=== PATIENT | female | born 1985 | race Caucasian/White ===

== ENCOUNTER 2024-07-27 08:02 | Inpatient (IN) | payer BC ==
[2024-07-29 18:07] VITALS: BMI 47.4
[2024-07-29] MEDS ORDERED: Tranexamic Acid 1,000 MG/10 ML VIAL IVP PRN (18:27)
[2024-07-29] MEDS ORDERED: Ibuprofen 800 MG TAB PO PRN (18:27)
[2024-07-29] MEDS ORDERED: Lidocaine 1% (PF) 30 ML VIAL SC PRN (18:27)
[2024-07-29] MEDS ORDERED: Acetaminophen 500 MG TAB PO PRN (18:27)
[2024-07-29] MEDS ORDERED: Ondansetron PF 4 MG/2 ML Vial IVP PRN ×4 (18:27→22:41)
[2024-07-29] MEDS ORDERED: Misoprostol 200 MCG TAB PR PRN (18:27)
[2024-07-29] MEDS ORDERED: Promethazine HCl 25 MG/ML VIAL IM PRN ×3 (18:27→22:41)
[2024-07-29] MEDS ORDERED: Misoprostol 100 MCG TAB VAG SCH (18:30)
[2024-07-29] MEDS ORDERED: Oxytocin 30 units/NS 500 ML 500 ML IV SCH (18:30)
[2024-07-29] MEDS ORDERED: Labetalol HCl 100 MG/20 ML VIAL SLOW IVP PRN ×2 (18:31)
[2024-07-29] MEDS ORDERED: hydrALAZINE 20 MG/ML VIAL SLOW IVP PRN ×2 (18:31)
[2024-07-29] MEDS: hydrALAZINE 20 MG/ML VIAL SLOW IVP PRN (18:38)
[2024-07-29] MEDS: Magnesium Sulfate 20 gm/500 ml 20 GM/500 ML BAG ONE (18:41)
[2024-07-29 18:42] LABS: #Basophils 0.03 10x3/uL (0.0-0.2); #Eosinophils 0.08 10x3/uL (0.0-0.5); #Monocytes 0.68 10x3/uL (0.0-1.1); #Neutrophils 4.48 10x3/uL (1.5-8.4); %Basophils 0.4 % (0.0-2.0); %Eosinophils 1.1 % (0.0-6.0); %Monocytes 9.2 % (0.0-10.0); %Neutrophils 60.9 % (40.0-75.0); Hematocrit 36.4 % (34.9-44.5); Hemoglobin 12.6 g/dL (12.0-15.5); Mean Corpuscular HGB CONC 34.6 g/dL (32.0-36.0); Mean Corpuscular Hemoglobin 29.6 pg (27.0-33.0); Mean Corpuscular Volume 85.6 fL (81.6-98.3); Mean Platelet Volume 12.7 fL (7.4-10.4); Platelet Count 225 10x3/uL (150-450); Red Blood Cell (RBC) Count 4.25 10x6/uL (3.90-5.03); White Blood Cell (WBC) Count 7.36 10x3/uL (3.5-10.5)
[2024-07-29] MEDS ORDERED: Lorazepam 2 MG/ML VIAL SLOW IVP PRN (18:50)
[2024-07-29] MEDS ORDERED: Calcium Gluc 4.6 MEQ/10 ML (100 MG/ML) SLOW IVP PRN (18:50)
[2024-07-29 18:58] LABS: ALT (SGPT) 14 U/L (Less than 34); AST (SGOT) 22 U/L (11-34); Albumin 2.4 g/dL (3.1-4.5); Alkaline Phosphatase 158 U/L (40-110); Anion Gap 18 mmol/L (10-20); BUN (Urea Nitrogen) 11 mg/dL (7.0-18.7); Bilirubin, Total 0.3 mg/dL (0.3-1.2); Calc. Creatinine Clearance 238 mL/min (70-130); Calcium 8.8 mg/dL (7.8-10.44); Carbon Dioxide 18 mmol/L (22-29); Chloride 107 mmol/L (98-107); Estimated GFR 115; Globulin 3.7 g/dL (2.4-3.5); Glucose 163 mg/dL (70-105); Potassium 4.5 mmol/L (3.5-5.1); Protein, Total 6.1 g/dL (6.0-8.3); Sodium 138 mmol/L (136-145)
[2024-07-29 19:16] LABS: Syphilis Antibody Nonreactive (Nonreactive); Syphilis Antibody Index 0.09 S/CO (<1.00 Non-Reactive)
[2024-07-29 19:17] LABS: HBsAg Index 0.16 S/CO (0-0.99); Hep B Surf Ag - L&D Non-Reactive S/CO (NonReactive)
[2024-07-29] MEDS: Penicillin G Potassium 5 MILL.UNITS in Sodium Chloride 0.9% 100 ML IVPB SCH (19:58)
[2024-07-29 20:29] LABS: Creatinine, Urine 175.93 mg/dL (15.00-278.00)
[2024-07-29] MEDS: fentaNYL/Ropivacaine Epidural 100 ML ONE (20:59)
[2024-07-29] MEDS ORDERED: Moisturizing Cream (Eucerin) 113 GM JAR TOP PRN ×2 (21:30→22:41)
[2024-07-29] MEDS ORDERED: Naloxone HCl 0.4 mg/ml Vial IVP PRN ×4 (21:30→22:41)
[2024-07-29] MEDS ORDERED: diphenhydrAMINE 50 MG/ML VIAL IVP PRN ×2 (21:30→22:41)
[2024-07-29] MEDS ORDERED: Lactated Ringer's 500 ML IV PRN (21:30)
[2024-07-29] MEDS ORDERED: Communication Order-Pharmacy FS SCH ×2 (21:30→22:45)
[2024-07-29] MEDS ORDERED: fentaNYL 2 mcg/Ropivacaine 0.2% Epidural 100 ML CADD EPIDURAL SCH (21:30)
[2024-07-29] MEDS: ePHEDrine Sulfate 50 MG/10 ML VIAL SLOW IVP PRN ×2 (21:33→21:44)
[2024-07-29] MEDS: Lactated Ringer's 1,000 ML IV SCH (21:41)
[2024-07-29] MEDS ORDERED: Bicitra 30 ML UDCUP PO PRN (22:24)
[2024-07-29] MEDS ORDERED: Famotidine/PF 20 mg/2ml Vial SLOW IVP PRN (22:24)
[2024-07-29] MEDS ORDERED: Azithromycin 500 MG in Sodium Chloride 0.9% 250 ML 250 ML IVPB SCH (22:30)
[2024-07-29] MEDS ORDERED: Meperidine HCl/PF 25 MG (1 mL) VIAL SLOW IVP PRN (22:41)
[2024-07-29] MEDS ORDERED: fentaNYL 50 mcg/mL 1 mL Vial SLOW IVP PRN (22:41)
[2024-07-29] MEDS ORDERED: Naloxone HCl 0.4 mg/ml Vial IV PRN (22:41)
[2024-07-29] MEDS: CEFAZOLIN 2 GM in Sodium Chloride 0.9% 100 ML IVPB SCH (22:59)
[2024-07-30 00:06] LABS: Analyzer IN Cardio CS NICU; Critical Notified By: clumpkins rt; RapidComm Collect By nur.arp
[2024-07-30 00:11] LABS: Analyzer IN Cardio CS NICU; Critical Notified By: clumpkins rt; RapidComm Collect By nur.arp; pH (Cord, venous) 7.055 (7.250-7.350)
[2024-07-30] MEDS: hydrALAZINE 20 MG/ML VIAL ONE (03:18)
[2024-07-30] MEDS: Dexamethasone 10 MG/ML VIAL ONE (03:21)
[2024-07-30] MEDS: Ketorolac Tromethamine 30 MG (1 mL) VIAL ONE (03:21)
[2024-07-30] MEDS: Penicillin G 2.5 MILL.units 2.5 MILL.UNITS in Premix 1 BAG IVPB SCH (03:21)
[2024-07-30] MEDS: Famotidine/PF 20 mg/2ml Vial ONE (03:22)
[2024-07-30] MEDS: Ondansetron PF 4 MG/2 ML Vial ONE (03:22)
[2024-07-30] MEDS: PHENYLEPHRINE-NS 100 MCG/ML 10 ML SYRINGE ONE (03:22)
[2024-07-30] MEDS: Morphine PF 10 MG/10 ML VIAL ONE (03:22)
[2024-07-30] MEDS: Oxytocin 10 UNITS/ML VIAL ONE ×2 (03:22)
[2024-07-30] MEDS: Magnesium Sulfate 20 gm/500 ml 20 GM/500 ML BAG ONE (03:45)
[2024-07-30] MEDS ORDERED: hydrALAZINE 20 MG/ML VIAL SLOW IVP PRN ×2 (04:15)
[2024-07-30] MEDS ORDERED: Calcium Gluc 4.6 MEQ/10 ML (100 MG/ML) SLOW IVP PRN (04:15)
[2024-07-30] MEDS ORDERED: Magnesium Sulfate 20 gm/500 ml 4 GM/100 ML BAG IVPB SCH (04:15)
[2024-07-30] MEDS ORDERED: Labetalol HCl 100 MG/20 ML VIAL SLOW IVP PRN ×2 (04:15)
[2024-07-30 04:45] LABS: Hematocrit 34.8 % (34.9-44.5); Hemoglobin 11.8 g/dL (12.0-15.5); Mean Corpuscular HGB CONC 33.9 g/dL (32.0-36.0); Mean Corpuscular Hemoglobin 28.9 pg (27.0-33.0); Mean Corpuscular Volume 85.1 fL (81.6-98.3); Mean Platelet Volume 12.7 fL (7.4-10.4); Platelet Count 201 10x3/uL (150-450); RBC Distribution Width 12.8 % (11.5-14.5); Red Blood Cell (RBC) Count 4.09 10x6/uL (3.90-5.03); White Blood Cell (WBC) Count 15.94 10x3/uL (3.5-10.5)
[2024-07-30 05:03] LABS: Magnesium 4.3 mg/dL (1.6-2.6)
[2024-07-30] MEDS: Oxytocin 30 units/NS 500 ML 500 ML IV SCH (05:09)
[2024-07-30] MEDS ORDERED: Ketorolac Tromethamine 30 MG (1 mL) VIAL IVP PRN (06:00)
[2024-07-30] MEDS: NIFEdipine XL 30 MG ER.TAB PO SCH (08:35)
[2024-07-30] MEDS: Magnesium Sulfate 20 gm/500 ml 20 GM/500 ML BAG IVPB SCH (13:58)
[2024-07-30] MEDS: Acetaminophen 325 MG TAB PO PRN (19:30)
[2024-07-30] MEDS ORDERED: HYDROcodone/Acetaminophen 7.5/325 mg Tablet PO PRN (21:31)
[2024-07-30] MEDS ORDERED: Lorazepam 2 MG/ML VIAL SLOW IVP PRN (21:31)
[2024-07-30] MEDS ORDERED: Bisacodyl 10 MG SUPP PR PRN (22:36)
[2024-07-30] MEDS ORDERED: Zolpidem Tartrate 5 MG TAB PO PRN (22:36)
[2024-07-31] MEDS: Acetaminophen 325 MG TAB PO PRN (01:09)
[2024-07-31] MEDS: Ibuprofen 800 MG TAB PO PRN (01:09)
[2024-07-31] MEDS: Docusate 100 MG CAP PO SCH ×2 (01:10→07:40)
[2024-07-31 05:03] LABS: Hematocrit 30.3 % (34.9-44.5); Mean Corpuscular Hemoglobin 28.9 pg (27.0-33.0); Mean Corpuscular Volume 87.6 fL (81.6-98.3); Platelet Count 189 10x3/uL (150-450); RBC Distribution Width 13.2 % (11.5-14.5); Red Blood Cell (RBC) Count 3.46 10x6/uL (3.90-5.03); White Blood Cell (WBC) Count 9.11 10x3/uL (3.5-10.5)
[2024-07-31] MEDS: Prenatal Vitamin 1 TAB PO SCH (07:40)
[2024-07-31] MEDS: NIFEdipine XL 60 MG ER.TAB PO SCH (08:21)
[2024-07-31] MEDS: metFORMIN 500 MG TAB PO SCH (08:24)
[2024-07-31] MEDS ORDERED: Ibuprofen 800 MG TAB PO PRN ×2 (12:00)
[2024-07-31] MEDS: Boostrix 0.5 ML (Tdap) VIAL (>/=7 yrs of age) IM ONE (15:47)
[2024-07-31] MEDS ORDERED: Ondansetron ODT 4 MG TAB PO PRN (17:44)
[2024-07-31] MEDS: Simethicone Chewable 80 MG TAB PO PRN (21:04)
[2024-08-01] MEDS: HYDROcodone/Acetaminophen 5/325 mg Tablet PO PRN ×2 (05:19→09:13)
[2024-08-01] MEDS: hydrALAZINE 20 MG/ML VIAL SLOW IVP PRN (20:33)
[2024-08-01] MEDS: Labetalol HCl 100 MG TAB PO SCH (21:07)
[2024-08-02] MEDS: Labetalol HCl 200 MG TAB PO SCH ×2 (08:17→15:08)
[2024-08-02] MEDS: Furosemide 20 MG TAB PO SCH (08:17)
[2024-08-03] MEDS: Milk Of Magnesia 30 ML UDCUP PO SCH (21:59)
[2024-08-04 10:22] VITALS: TEMP 97.9
[2024-08-04 10:31] VITALS: BP 155/72
== END 2024-08-04 11:22 | disposition home or self-care (01) | DRG 788 ==
LOC: CSHLD 07-29 17:42 → CSHPED 07-30 23:00
PROVIDERS: ADMIT Obstetrics & Gynecology; ATTEND Obstetrics & Gynecology
PROC: 10D00Z1 Extraction of Products of Conception, Low, Open Approach (ICD-10-PCS; principal; 2024-07-29)
PROC: 10D17Z9 Manual Extraction of Products of Conception, Retained, Via Natural or Artificial Opening (ICD-10-PCS; 2024-07-29)
PROC: 3E033VJ Introduction of Other Hormone into Peripheral Vein, Percutaneous Approach (ICD-10-PCS; 2024-07-29)
DX: O14.14 Severe pre-eclampsia complicating childbirth (principal); O76 Abnormality in fetal heart rate and rhythm complicating labor and delivery; O61.0 Failed medical induction of labor; O72.0 Third-stage hemorrhage; E66.01 Morbid (severe) obesity due to excess calories; O99.214 Obesity complicating childbirth; O24.111 Pre-existing type 2 diabetes mellitus, in pregnancy, first trimester; Z37.0 Single live birth; Z3A.38 38 weeks gestation of pregnancy
CPT/HCPCS: 36415; 36416; 51702; 80053; 82570; 82805; 83735; 84156; 85025; 85027; 86780; 86850; 86900; 86901; 87340; J0360; J1100; J1885; J2274; J2405; J2540; J2590; J3475; J3490; J7120